=== PATIENT | male | born 1960 | race Caucasian/White ===

== ENCOUNTER 2017-09-12 10:10 | Inpatient (IN) ==
--- NOTE | 2017-09-11 20:54 | Discharge Summary ---
<Yarelis Pearl Mayra - Last Filed: 09/11/17 20:49> Date of Encounter: 09/11/17 - Discharge Diagnosis (1) Arthritis of left hip Priority: Primary Status: Acute (2) Status post total hip replacement, left Priority: Primary Status: Acute (3) Obesity Priority: Secondary Status: Chronic Qualifiers: Obesity type: due to excess calories Obesity classification: unspecified obesity classification Serious obesity comorbidity presence: unspecified whether serious comorbidity present Qualified Code(s): E66.09 - Other obesity due to excess calories (4) History of DVT (deep vein thrombosis) Priority: Secondary Status: Chronic (5) Polymyalgia rheumatica Priority: Secondary Status: Chronic Comments: On chronic prednisone therapy. - Hospital Course Hospital course: Mr. Winslow is a 57 year old male - Time Spent with Patient Total time spent providing and/or coordinating discharge services: - Discharge Medications Prescriptions: Aspirin Enteric Coated [Aspirin EC] 325 mg PO BID #20 tablet. OxyIAN Immed Rel [Roxicodone 5 MG] 5 mg PO Q6HR PRN 7 Days #28 tablet PRN Reason: Severe Pain Home Medications: Aspirin Enteric Coated [Aspirin EC] 325 mg PO BID #20 tablet. 09/11/17 [Rx] OxyCODONE Immed Rel [Roxicodone 5 MG] 5 mg PO Q6HR PRN 7 Days #28 tablet [Rx] Acetaminophen [Tylenol] 500 mg PO BID PRN 09/12/17 [History] Aspirin [Adult Aspirin Regimen] 81 mg PO DAILY 09/12/17 [History] Calcium Carbonate [Calcium] 500 mg PO BID 09/12/17 [History] Cholecalciferol (D-3) [Vitamin D] 1,000 unit PO DAILY 09/12/17 [History] Ibuprofen [Motrin] 600 mg PO Q8HR PRN 09/12/17 [History] predniSONE [PredniSONE] 7 mg PO DAILY 09/12/17 [History] Allergies/Adverse Reactions: 3 Allergy/AdvReac Type Severity Reaction Status Date / Time No Known Allergies Allergy Verified 09/12/17 10:44 Primary care physician: Alejandro Warren MD - Patient Status Disposition: Home, Self-Care Condition: Good - Discharge Instructions Follow Up With: Alejandro Warren MD [Primary Care Provider] - <Michael Timmons - Last Filed: 09/13/17 06:27> Orders not resulted at time of discharge: Pending orders 09/12/17 00:01 XR hip complete LT [XR] Routine H/H [Hemoglobin and Hematocrit] [HEME] Routine Date of Encounter: 09/13/17 Time of Encounter: 06:27 - Discharge Diagnosis (1) Obesity (BMI 35.0-39.9 without comorbidity) Priority: Secondary Status: Chronic (2) Arthritis of left hip Priority: Primary Status: Chronic (3) Status post total hip replacement, left Priority: Primary Status: Acute (4) History of DVT (deep vein thrombosis) Priority: Secondary Status: Chronic (5) Polymyalgia rheumatica Priority: Secondary Status: Chronic - Hospital Course Hospital course: Mr. Winslow is a 57 year old male Status post left total hip replacement The patient had an uneventful postoperative course. They received antibiotics and physical therapy and were discharged in stable condition. There will follow -up in the office in 2 weeks. - Time Spent with Patient Total time spent providing and/or coordinating discharge services: Primary care physician: Alejandro Warren MD - Patient Status Functional capacity at discharge: uses cane/walker Overall status at discharge: patient is progressing back to baseline
[2017-09-12] MEDS ORDERED: CeFAZolin Syr 3,000MG/30 ML 3,000 MG/30 ML SYRINGE IVPB ONE (10:46)
[2017-09-12] MEDS ORDERED: Ringers Solution, Lactated 1,000 ML IVC SCH ×2 (11:00→17:38)
--- NOTE | 2017-09-12 11:19 | History & Physical Report ---
Date of Encounter: 09/12/17 Time of Encounter: 11:19 24 Hour HP Update - Instructions Instructions: If the History and Physical is less than 30 days old and was completed prior to A.M. admission and or procedure and has NOT been updated on calendar day of procedure please complete this update prior to performing procedure. - Update Patient reports changes in Medical Condition: No Changes in examination, assessment, or condition: No Changes in Medication: No Preop tests/diagnostics Reviewed: Yes Surgery Remains Indicated: Yes Consent for Planned Operative Procedure(s) Verified: Yes - Pre-Operative Checklist Preoperative Checklist Indicated: No Prophylactic Antibiotic Ordered: Yes Is VTE Prophylaxis Indicated?: Yes
[2017-09-12] MEDS ORDERED: *HR* FentaNYL (PF) 100 MCG/2 ML VIAL ONE ×2 (11:41→17:49)
[2017-09-12] MEDS ORDERED: Lidocaine -MPF 2% 2 ML VIAL ONE (11:41)
[2017-09-12] MEDS ORDERED: Ondansetron 4 MG/2 ML VIAL ONE (11:41)
[2017-09-12] MEDS ORDERED: *HR* Midazolam HCl 2 MG/2 ML VIAL ONE (11:41)
--- NOTE | 2017-09-12 12:06 | Anesthesia Evaluation PreOp ---
Date of Encounter: 09/12/17 Time of Encounter: 12:04 - Past History Planned Operation: L total hip robotic Cardiac History: Denies any Significant Hx Pulmonary History: Denies Any Significant HX ENGINEERING EXECUTIVE History: Denies Any Significant HX Other Medical History: Other (DVR Leighann lorenzo) Anesthesia History: No Prior Anesthetic Complications, Past Anesthesia ( melanoma excision) Alcohol Use: none Drug use: none Medications and Allergies Aspirin Enteric Coated [Aspirin EC] 325 mg PO BID #20 tablet. 09/11/17 [Rx] OxyCODONE Immed Rel [Roxicodone 5 MG] 5 mg PO Q6HR PRN 7 Days #28 tablet [Rx] Acetaminophen [Tylenol] 500 mg PO BID PRN 09/12/17 [History] Aspirin [Adult Aspirin Regimen] 81 mg PO DAILY 09/12/17 [History] Calcium Carbonate [Calcium] 500 mg PO BID 09/12/17 [History] Cholecalciferol (D-3) [Vitamin D] 1,000 unit PO DAILY 09/12/17 [History] Ibuprofen [Motrin] 600 mg PO Q8HR PRN 09/12/17 [History] predniSONE [PredniSONE] 7 mg PO DAILY 09/12/17 [History] 3 Allergy/AdvReac Type Severity Reaction Status Date / Time No Known Allergies Allergy Verified 09/12/17 10:44 - Meds/Allergy Pre-op Review Medications Reviewed: Yes Allergies Reviewed: Yes Beta Blockers on Current Med List: No Anesthesia Results - Labs Laboratory Tests 09/06/17 09/06/17 09/06/17 08:20 08:20 08:20 WBC 6.9 Hgb 14.7 Hct 44.3 Plt Count 224 PT 10.5 INR 1.0 APTT 27.7 Sodium 138 Potassium 4.2 Chloride 107 Carbon Dioxide 25 BUN 17 Creatinine 0.92 Anesthesia Exam O2 Sat Height 1.88 m Height 1.88 m Weight 124.284 kg Weight 124.284 kg O2 Sat by Pulse Oximetry 95 Vital Signs Temp Pulse Resp BP Pulse Ox 97.9 F 75 16 136/90 95 09/12/17 11:00 09/12/17 11:00 09/12/17 11:00 09/12/17 11:00 09/12/17 11:00 Height: 72" Weight: 274lbs NPO (# of Hours): >8 - HEENT Pupil (Motor): Pupils equal, EOMI - ENGINEERING EXECUTIVE LOC: Oriented ENGINEERING EXECUTIVE Motor: Normal RUE, Normal LUE, Normal RLE, Normal LLE, Normal Face ENGINEERING EXECUTIVE Sensory: Normal: RUE, LUE, RLE, LLE, Face - Cardiac Rhythm: Regular - Pulmonary Breath Sounds: bilateral Clear Respiratory Effort: Symmetrical Anesthesia Assess/Plan ASA Score: 2 Modified Miguel Scale for Level of Consciousness: Cooperative, oriented, and tranquil Anesthetic Plan: General (plan B), Regional (spinal with duramorph), MAC Monitoring Plan: Standard Monitors Recovery Plan: PACU
[2017-09-12] MEDS ORDERED: *HR* Labetalol 100 MG/20 ML MDV IVP PRN (12:19)
[2017-09-12] MEDS ORDERED: *HR* Promethazine 25 MG/ML VIAL IVP PRN (12:19)
[2017-09-12] MEDS ORDERED: *HR* HYDROcodone/Acet 10/325 mg TABLET PO PRN (12:19)
[2017-09-12] MEDS ORDERED: Acetaminophen IV 1,000 MG/100 ML INFUS..BTL IVPB ONE (12:21)
[2017-09-12] MEDS ORDERED: Propofol 500 MG/50 ML INFUS..BTL ONE ×2 (12:24→15:13)
[2017-09-12] MEDS ORDERED: Morphine Sulfate/PF 5mg/10mL Vial ONE (12:31)
[2017-09-12] MEDS ORDERED: Ethanol\\Acetic Acid\\Na Ace\\Ben 1,000 ML IRRIG.SOLN IR ONE (12:53)
[2017-09-12] MEDS ORDERED: Hydrocortisone Sodium Succ 100 MG/2 ML VIAL ONE (13:06)
--- NOTE | 2017-09-12 13:06 | Anesthesia Procedures ---
Date of Encounter: 09/12/17 Time of Encounter: 12:49 Procedures: Anesthesia - Epidural/Spinal Patient ID/Chart reviewed: Yes Patient examined: Yes Sedation: Versed (mg): 2 Site Prep: Aseptic Technique, Sterile prep and drape, 0.5% Chlorhexidine/Alcohol Patient position: upright Local Anesthetic: Lidocaine 1% Amount of Local Anesthetic used: 3 Interspace Used: L3-L4 Blood: No CSF: Yes Paresthesia: No Spinal Needle Gauge: 24 (sprotte) Spinal Dose: 3ml 0.5ml Bupi and 0.25mg PF morphine Procedure: IV sedation given, 02 via NC, sitting position, low back prepped and draped in sterile fashion, 3ml 1% lido injected approx L3-4, 20g introducer placed, 24g sprotte spinal needle, csf clear, injected 3ml 0.5% bupi with 0.25mg PF morphine injected intrathecally. Pt tolerated procedure well
[2017-09-12] MEDS ORDERED: Dexamethasone 4 MG/ML VIAL ONE (14:11)
[2017-09-12] MEDS ORDERED: EPHEDrine 50 MG/ML VIAL ONE (14:17)
--- NOTE | 2017-09-12 15:59 | Orthopedic Operative Note ---
Date of procedure: 09/12/17 Pre-op diagnosis: Right hip arthritis Post-op diagnosis: same Procedure: Procedure: Right Total Hip Replacment robotic-assisted Estimated blood loss: 300 cc Hardware: Metal and polyethylene replacement. [place] DM Cup:60 cup Femoral size 9 stem Head: 12 head with Raine Procedural Notes: Grade 4 arthritic changes femoral head acetabular socket, procedure performed with robotic assistance. 6 mm short operative leg is measured by preoperative CT scan. Operative procedure: The patient was brought to the operating room and placed on the operating room table. After general anesthesia was administered the patient was placed in the lateral decubitus position with the operative leg up. All pressure points were padded appropriately and the head was stabilized in the neutral position. The operative extremity was prepped and draped in the sterile surgical fashion patient received IV antibiotic prior to skin incision. 3 Steinmann pins were placed in the iliac crest 3 cm proximal to the anterior superior iliac spine this was for the robotic-assisted sensor. This was done through a small 2 cm incision. A standard posterior approach is made to the operative hip, the incision was made through the skin and subcutaneous tissue hemostasis was obtained with Bovie cautery. Using careful sharp dissection the fascia was identified and incised exposing the external rotators. The femoral checkpoint was placed leg length was measured at this time utilizing robotic assistance. The external rotators were released off the greater trochanter and tagged with # 2 FiberWire suture. The capsule was T'd open and the hip was brought into internal rotation. Patient noted to have grade 4 arthritic changes femoral head. The femoral neck cut was made at the appropriate level roughly 15 mm proximal to the lesser trochanter aced on preoperative templating. An anterior capsulotomy was performed for the anterior retractor. Soft tissues removed from the acetabulum. Patient noted to have grade 4 arthritic changes acetabulum. The acetabulum checkpoint was placed confirmed. The acetabulum was then mapped with robotic assistance. Based on the preoperative plan the acetabulum was reamed in one step with a X reamer. The X acetabulum was impacted with robotic assistance and 43 degrees of abduction and 20 degrees of anteversion. The hip was brought back in to internal rotation and prepared with the switch box installer followed by the canal finder followed by the reaming process to a size 9/ 10 broaching process in 20 degrees anteversion. It was broached up to the appropriate size 9. Trial reduction revealed leg lengths close to normal. The femoral implant was impacted in place in 20 degrees of anteversion. Trial reduction found the hip to be stable with 12 head and Raine. The trials were removed and the real implants were impacted in place. The hip was reduced, patient had robotic confirmed leg length of 10 mm longer than the contralateral side. The hip had excellent stability with forward flexion to 90 degrees adduction of 30 degrees and internal rotation of 60 degrees. The hip had no shuck. The hips after 2 minutes with a antibacterial solution. It was irrigated out with 2 L of pulse irrigation. The checkpoints were removed, Steinmann pins were removed. The hip was closed by the PA. The deep tissue was irrigated and closed deep with #1 PDS suture superficially with 0 PDS suture and skin was closed with Dermabond and zip tie. The patient was placed in a sterile dressing and abduction pillow. The patient was extubated and transferred to the recovery room in stable condition. Anesthesia: GETA Surgeon: Michael Timmons Was there an trade sales assistant present: No Estimated blood loss (cc): 300 Condition: stable Disposition: PACU
--- NOTE | 2017-09-12 17:04 | Anesthesia Evaluation Post Op ---
Date of Encounter: 09/12/17 Time of Encounter: 17:03 - Vital Signs Vital Signs: Vital Signs/O2 Sat, Most Current Temp Pulse Resp BP Pulse Ox 97.6 F 81 16 127/84 94 09/12/17 16:56 09/12/17 16:56 09/12/17 16:56 09/12/17 16:56 09/12/17 16:56 - Lungs Lungs: Clear Ascult./Percussion - Airway Airway: Non-obstructed - Cardiovascular Regular Rate - Mental Status Mental Status: Alert & Oriented, Answers Appropriately - Pain Pain Scale: 0 Pain Scale used: Numeric (1 - 10) - Nausea Vomiting Nausea Vomiting: Not Present - Hydration Hydration: Ice chips, Hollis catheter - Discharge PostOp Status: Transfer Patient to floor
[2017-09-12 17:25] LABS: Hematocrit 44.3 % (37.5-50.1); Hemoglobin 14.4 g/dL (12.9-16.9)
[2017-09-12] MEDS ORDERED: Ondansetron 4 MG/2 ML VIAL IVP PRN (17:38)
[2017-09-12] MEDS ORDERED: traMADol 50 MG TABLET PO PRN (17:38)
[2017-09-12] MEDS ORDERED: MOM Conc 10 ML UD.LIQ PO PRN (17:38)
[2017-09-12] MEDS ORDERED: Temazepam 15 MG CAPSULE PO PRN (17:38)
[2017-09-12] MEDS ORDERED: Sennosides 8.6 MG TABLET PO PRN (17:38)
[2017-09-12] MEDS ORDERED: *HR* OxyCODONE Immed Rel 5 MG TABLET PO PRN (17:38)
[2017-09-12] MEDS ORDERED: Naloxone 0.4 MG/ML INJ IVP PRN (17:38)
[2017-09-12] MEDS ORDERED: *HR* Enoxaparin 30 MG/0.3 ML SYRINGE SQ SCH (18:00)
[2017-09-12] MEDS: *HR* Enoxaparin 30 MG/0.3 ML SYRINGE SQ SCH (18:36)
[2017-09-12] MEDS: *HR* OxyCODONE/APAP 5/325 TABLET PO PRN ×2 (18:37→23:40)
[2017-09-12] MEDS: Ascorbic Acid 500 MG TABLET PO SCH (18:37)
[2017-09-12] MEDS: CeFAZolin Syr 3,000MG/30 ML 3,000 MG/30 ML SYRINGE IVPB SCH (21:17)
[2017-09-13 01:08] LABS: Hemoglobin 13.7 g/dL (12.9-16.9)
[2017-09-13 01:28] LABS: BUN/Creatinine Ratio 19 (6-26); Blood Urea Nitrogen 17 mg/dL (6-20); Calcium 9.2 mg/dL (8.6-10.3); Carbon Dioxide 26 mEq/L (23-29); Chloride 101 mEq/L (98-107); Glucose 156 mg/dL (70-105); Osmolality,Calculated 279 (280-300); Potassium 4.2 mEq/L (3.5-5.1); Sodium 132 mEq/L (136-145); eGFR For African Americans > 60 (> 60); eGFR For Non-African Americans > 60 (> 60)
[2017-09-13] MEDS: CeFAZolin Syr 3,000MG/30 ML 3,000 MG/30 ML SYRINGE IVPB SCH (05:40)
[2017-09-13] MEDS: *HR* OxyCODONE/APAP 5/325 TABLET PO PRN ×2 (05:46→10:03)
[2017-09-13] MEDS: *HR* Enoxaparin 30 MG/0.3 ML SYRINGE SQ SCH (05:53)
--- NOTE | 2017-09-13 06:28 | Orthopedics Progress Note ---
Date of Encounter: 09/13/17 Time of Encounter: 06:28 - Assessment and Plan (1) Obesity (BMI 35.0-39.9 without comorbidity) Current Visit: Yes Status: Chronic (2) Arthritis of left hip Current Visit: No Status: Chronic (3) Status post total hip replacement, left Current Visit: No Status: Acute (4) History of DVT (deep vein thrombosis) Current Visit: No Status: Chronic (5) Polymyalgia rheumatica Current Visit: No Status: Chronic Subjective Interval history: Patient was seen this morning doing well without complaints. Afebrile vital signs stable. Operative extremity: Neurovascularly intact Dressing clean dry and intact Calves nontender Assessment and plan: Continue with postoperative care Hemoglobin 13.7 discharged today Objective Vital signs: Vital Signs Temp Pulse Resp BP Pulse Ox 09/13/17 03:21 98.5 F 66 18 112/74 93 09/12/17 22:43 98.6 F 73 18 119/80 96 09/12/17 19:28 97.4 F L 66 16 138/87 98 09/12/17 18:49 97.5 F L 70 16 134/87 97 09/12/17 18:09 97.5 F L 66 16 127/80 96 09/12/17 17:30 97.6 F 71 16 117/75 96 09/12/17 17:16 98.3 F 72 16 126/87 95 09/12/17 17:06 98.3 F 77 16 137/82 94 09/12/17 16:56 97.6 F 81 16 127/84 94 09/12/17 16:46 97.6 F 75 16 131/82 93 09/12/17 16:36 97.0 F L 82 14 134/85 97 09/12/17 14:42 65 18 128/84 96 09/12/17 14:39 64 16 134/80 96 09/12/17 14:36 64 18 129/83 96 09/12/17 14:32 70 18 127/91 96 09/12/17 14:29 68 18 129/72 98 09/12/17 14:26 66 18 127/84 98 09/12/17 14:23 64 18 126/68 96 09/12/17 14:20 73 18 124/72 97 09/12/17 14:17 75 18 123/83 98 09/12/17 14:14 66 18 127/78 98 09/12/17 14:11 66 18 123/82 97 09/12/17 14:08 65 18 120/70 98 09/12/17 14:05 70 18 120/70 98 09/12/17 14:02 70 18 118/76 97 09/12/17 13:59 66 18 124/82 97 09/12/17 13:56 70 18 128/79 97 09/12/17 13:53 69 18 119/76 97 09/12/17 13:50 73 18 130/74 97 09/12/17 13:47 67 18 133/79 98 09/12/17 13:44 70 18 113/76 98 09/12/17 13:41 69 18 122/75 97 09/12/17 13:38 68 18 113/76 96 09/12/17 13:35 70 18 92/74 96 09/12/17 13:32 72 18 131/82 98 09/12/17 13:29 70 18 133/80 98 09/12/17 13:26 74 18 116/80 99 09/12/17 13:23 76 18 128/86 99 09/12/17 13:20 70 18 131/78 95 09/12/17 13:17 72 18 134/80 95 09/12/17 13:14 78 18 128/79 95 09/12/17 13:11 74 18 133/83 95 09/12/17 13:08 79 18 123/85 95 09/12/17 13:05 72 18 132/83 95 09/12/17 13:02 73 16 131/87 95 09/12/17 12:59 72 18 127/80 95 09/12/17 12:56 81 18 131/75 97 09/12/17 12:53 81 18 128/81 97 09/12/17 12:50 78 18 135/61 98 09/12/17 12:47 75 18 127/81 96 09/12/17 12:37 79 18 120/93 95 09/12/17 11:00 97.9 F 75 16 136/90 95 Intake and Output 09/12/17 09/12/17 09/13/17 15:59 23:59 07:59 Intake Total 30 / 30 Output Total 650 / 650 1600 / 1600 Balance -620 / -620 -1600 / -1600 Intake: IV Fluids 30 / 30 Ancef Syringe 3,000 MG/30 ML 3, 30 / 30 000 mg In 30 ml @ 200 mls/hr IVPB Q8H PENDING SALE TO [facility] Rx#:[id number] Output: Urine 350 / 350 1600 / 1600 Estimated Blood Loss 300 / 300 Other: Weight 124.284 kg - Labs CBC & BMP: 09/13/17 00:50 04 00:50 Labs: Abnormal lab results Sodium 132 mEq/L (136-145) L 09/13/17 00:50 Glucose 156 mg/dL (70-105) H 09/13/17 00:50 Calculated Osmolality 279 (280-300) L 09/13/17 00:50 - VTE Documentation of Mechanical Device: Venous foot pump, device Consult Discharge Plan - Plan Referrals: Alejandro Warren MD [Primary Care Provider] - Prescriptions: Aspirin Enteric Coated [Aspirin EC] 325 mg PO BID #20 tablet.dr Bach Immed Rel [Roxicodone 5 MG] 5 mg PO Q6HR PRN 7 Days #28 tablet PRN Reason: Severe Pain
[2017-09-13] MEDS ORDERED: Cholecalciferol (D-3) 1,000 UNIT TABLET PO SCH (09:00)
[2017-09-13] MEDS ORDERED: predniSONE 1 MG TABLET PO SCH (09:00)
[2017-09-13] MEDS ORDERED: Aspirin Enteric Coated 81 MG Tablet PO SCH (09:00)
[2017-09-13] MEDS ORDERED: Multivit/Ca/Min/Fe/FA 1 TAB TABLET PO SCH (09:00)
[2017-09-13] MEDS: Ascorbic Acid 500 MG TABLET PO SCH (10:00)
[2017-09-13 11:00] VITALS: BP 101/61
--- NOTE | 2017-09-13 16:16 | Event Note ---
Date of Encounter: 09/13/17 Time of Encounter: 16:12 PCR - POD#1 Left THR 09/12/17 Patient seen at bedside. Wound examined: No active bleeding or drainage on 945 bandage. No manuela needed , zipline in place. New opsite placed. Labs reviewed. Stable Pain control: adequate Participating in PT. All questions and concerns addressed. Educated on use of incentive spirometer. Encouraged ambulation and proper hydration. Patient educated on post-operative restrictions and post-operative care. Addressed: s/s of DVT - history of DVT, starting compression stockings. Swelling discussed. Extra opsites given - change if current opsite is > 75% saturated, any persistent bleeding patient it to contact the office Discharge plan: Home today - outpatient PT
== END 2017-09-13 14:19 | disposition home or self-care (01) | DRG 470 ==
LOC: SAMDAY 10:10 → 3NENU 10:11
PROVIDERS: ADMIT Orthopaedic Surgery; ATTEND Orthopaedic Surgery